=== PATIENT | female | born 1975 | race Asian ===

== ENCOUNTER 2020-03-27 14:46 | Emergency (ER) | payer OTHER ==
[~2020-03-27] VITALS: Ht 160 cm; Wt 64.9 kg
[2020-03-27 15:42] VITALS: Ht 160 cm; Wt 64.9 kg
[2020-03-27 17:12] LABS: UA SPECIFIC GRAVITY 1.025 (1.005-1.035); microscopic required? YES; urine erythrocyte 3+ (NEGATIVE)
[2020-03-27 18:03] LABS: BASOPHIL % 0.4 % (0-2); PLATELET COUNT 258 x10^3mcL (130-400); RED CELL DISTRIBUTION WIDTH 12.3 % (11.5-14.5)
[2020-03-27 21:14] VITALS: BP 102/54
== END 2020-03-27 21:14 | disposition home or self-care (01) ==
LOC: ED 14:46
PROVIDERS: Emergency Medicine
DX: O02.1 Missed abortion (principal)